=== PATIENT | male | born 1950 | race Caucasian/White ===

== ENCOUNTER → 2016-12-09 | Outpatient (CLI) | payer MEDICARE | END | disposition home or self-care (01) | LOC: CFH 07:47 | PROVIDERS: ATTEND Genetic Counselor, MS | DX: Z87.891 Personal history of nicotine dependence (principal) | CPT/HCPCS: 93978 ==

== ENCOUNTER → 2017-01-19 | Outpatient (CLI) | payer MEDICARE | END | disposition home or self-care (01) | LOC: CFH 12:02 | PROVIDERS: ATTEND Internal Medicine Nephrology | DX: I12.9 Hypertensive chronic kidney disease with stage 1 through stage 4 chronic kidney disease, or unspecified chronic kidney disease (principal); D63.1 Anemia in chronic kidney disease; N18.3 Chronic kidney disease, stage 3 (moderate); E13.22 Other specified diabetes mellitus with diabetic chronic kidney disease; N28.1 Cyst of kidney, acquired; M45.9 Ankylosing spondylitis of unspecified sites in spine; N14.0 Analgesic nephropathy; R80.3 Bence Jones proteinuria | CPT/HCPCS: 76770 ==

== ENCOUNTER 2017-03-25 20:01 | Emergency (ER) | payer MEDICARE ==
[~2017-03-25] VITALS: Ht 162.6 cm; Wt 75.7 kg
[2017-03-25 20:14] VITALS: BP 142/66
[2017-03-25] MEDS ORDERED: OXYcodone/APAP 5/325MG TABLET PO ONE (21:00)
[2017-03-25] MEDS ORDERED: DIAZEPAM 5 MG TABLET PO ONE (21:00)
[2017-03-25] MEDS ORDERED: DIAZEPAM 5 MG TABLET ONE (21:12)
[2017-03-25] MEDS ORDERED: OXYcodone/APAP 5/325MG TABLET ONE (21:13)
[2017-03-25 22:10] LABS: PATH.CAST-FLAG NOT PRESENT; SPERM-FLAG NOT PRESENT; SRC-FLAG NOT PRESENT; XTAL-FLAG NOT PRESENT; YLC-FLAG NOT PRESENT
== END 2017-03-25 22:47 | disposition home or self-care (01) ==
LOC: ED 22:37
DX: S29.012A Strain of muscle and tendon of back wall of thorax, initial encounter (principal); E11.9 Type 2 diabetes mellitus without complications; E78.5 Hyperlipidemia, unspecified; I10 Essential (primary) hypertension; J45.909 Unspecified asthma, uncomplicated; X58.XXXA Exposure to other specified factors, initial encounter; Y93.89 Activity, other specified; Y92.89 Other specified places as the place of occurrence of the external cause; Y99.8 Other external cause status; Z79.4 Long term (current) use of insulin; Z79.82 Long term (current) use of aspirin
CPT/HCPCS: 71010; 72072; 81001; 99285

== ENCOUNTER → 2017-04-27 | Outpatient (CLI) | payer MEDICARE ==
[2017-04-27 11:22] LABS: ASPARTATE AMINO TRANSFERASE 39 U/L (15-37); BLOOD UREA NITROGEN 34 mg/dL (7-18)
[2017-04-27 12:23] LABS: HEMATOCRIT 35.8 % (39.2-51.8); HEMOGLOBIN 11.5 g/dL (13.7-18.0)
== END | disposition home or self-care (01) ==
LOC: LAB 10:46
PROVIDERS: ATTEND Specialist
DX: E11.22 Type 2 diabetes mellitus with diabetic chronic kidney disease (principal); N18.9 Chronic kidney disease, unspecified; M45.9 Ankylosing spondylitis of unspecified sites in spine
CPT/HCPCS: 36415; 80053; 81003; 85025; 86480

== ENCOUNTER → 2017-06-01 | Outpatient (CLI) | payer MEDICARE | END | disposition home or self-care (01) | LOC: RAD 13:30 | PROVIDERS: ATTEND Specialist | DX: J90 Pleural effusion, not elsewhere classified (principal); K82.8 Other specified diseases of gallbladder; J98.11 Atelectasis; N28.9 Disorder of kidney and ureter, unspecified; I25.10 Atherosclerotic heart disease of native coronary artery without angina pectoris; M85.88 Other specified disorders of bone density and structure, other site; M45.4 Ankylosing spondylitis of thoracic region; M19.012 Primary osteoarthritis, left shoulder; M43.24 Fusion of spine, thoracic region; R63.4 Abnormal weight loss; R61 Generalized hyperhidrosis; R63.0 Anorexia | CPT/HCPCS: 71250 ==

== ENCOUNTER → 2017-11-21 | Outpatient (CLI) | payer MEDICARE ==
[~2017-11-21] MED LIST: ALBU8.5H8 INH; AMLO10TA2 PO; ASPI-496 PO; ATOR20TA9 PO; CEFD300C37 PO; CHOL100012 PO; CIPR500T3 PO; CYCL-259 PO; FENO130C6 PO; FOLI0.4T2 PO; HYDR-3307 PO; INFL100V IV; INSU100C SQ-INSULIN; INSU300I SQ; IRBE150T25 PO; METH2.5T PO; METH5TAB2 PO; METR500T PO; MULT-6 PO; OMEP40CA6 PO; ONDA4TAB10 PO; TAMS0.4C2 PO; VIT1TABL47 PO
[2017-11-21 12:55] LABS: BASOPHILS # (AUTO) 0.07 x10^3/uL (0-0.1); BASOPHILS % (AUTO) 1 % (0-1); EOSINOPHILS # (AUTO) 0.62 x10^3/uL (0-0.4); EOSINOPHILS % (AUTO) 6 % (1-7); LYMPHOCYTES % (AUTO) 23 % (22-44); MD NO; MEAN CORPUSCULAR HEMOGLOBIN 30.7 pg (27.5-34.5); MEAN CORPUSCULAR HGB CONC 32.9 g/dL (33.2-36.2); MEAN CORPUSCULAR VOLUME 93.5 fL (81-97); MEAN PLATELET VOLUME 7.7 fL (7.4-10.4); MONOCYTES # (AUTO) 0.79 x10^3/uL (0.2-0.8); MONOCYTES % (AUTO) 8 % (2-9); NEUTROPHILS # (AUTO) 6.63 x10^3/uL (1.8-6.8); NEUTROPHILS % (AUTO) 63 % (42-75); PLATELET COUNT 259 x10^3/uL (130-400); RED BLOOD COUNT 4.38 x10^6/uL (4.38-5.82); RED CELL DISTRIBUTION WIDTH 16.1 % (9.4-14.8)
[2017-11-21 12:56] LABS: ALANINE AMINOTRANSFERASE 21 U/L (12-78); ALBUMIN 3.7 g/dL (3.4-5.0); ANION GAP 7 mmol/L (5-15); CHLORIDE 108 mmol/L (98-107)
[2017-11-21 12:59] LABS: ALKALINE PHOSPHATASE 51 U/L (45-117); BILIRUBIN,TOTAL 0.5 mg/dL (0.2-1.0)
== END | disposition home or self-care (01) ==
LOC: CFH 10:18
PROVIDERS: ATTEND Specialist
DX: R91.8 Other nonspecific abnormal finding of lung field (principal); M54.9 Dorsalgia, unspecified; Z92.25 Personal history of immunosuppression therapy
CPT/HCPCS: 36415; 71250; 80053; 82565; 85025